=== PATIENT | female | born 1950 | race Caucasian/White ===

== ENCOUNTER 2021-10-29 14:01 | Inpatient (IN) | payer BC ==
[~2021-10-29] VITALS: Ht 154.9 cm; Wt 70.0 kg
[2021-10-29 14:53] LABS: BASOPHILS # (AUTO) 0.1 X10'3 (0-0.2); BASOPHILS % (AUTO) 0.7 % (0-1); EOSINOPHILS # (AUTO) 0.1 X10'3 (0-0.9); EOSINOPHILS % (AUTO) 1.5 % (0-6); HEMATOCRIT 33.3 % (35.0-45.0); HEMOGLOBIN 11.9 g/dl (12.0-16.0); LYMPHOCYTES # (AUTO) 1.8 X10'3 (1.1-4.8); LYMPHOCYTES % (AUTO) 21.7 % (21-51); MEAN CORPUSCULAR HEMOGLOBIN 32.8 PG (27.0-31.0); MEAN CORPUSCULAR HGB CONC 35.8 g/dL (33.0-36.5); MEAN CORPUSCULAR VOLUME 91.6 FL (78-98); MEAN PLATELET VOLUME 9.1 FL (7.4-10.4); MONOCYTES # (AUTO) 0.7 X10'3 (0-0.9); MONOCYTES % (AUTO) 8.8 % (2-12); NEUTROPHILS # (AUTO) 5.7 X10'3 (1.8-7.7); NEUTROPHILS % (AUTO) 67.3 % (42-75); PLATELET COUNT 246 X10'3 (140-440); RED BLOOD COUNT 3.64 X10'6 (4.20-5.60); RED CELL DISTRIBUTION WIDTH 13.8 % (11.5-14.5); WHITE BLOOD COUNT 8.5 X10'3 (4.5-11.0)
[2021-10-29 15:07] LABS: ALANINE AMINOTRANSFERASE 17 U/L (12-78); ALBUMIN 3.2 G/DL (3.4-5.0); ALBUMIN/GLOBULIN RATIO 0.9 (1.1-1.5); ALKALINE PHOSPHATASE 48 IU/L (46-116); ANION GAP 1 (8-16); APTT 24 SECONDS (22-32); ASPARTATE AMINO TRANSFERASE 21 U/L (10-37); BILIRUBIN,TOTAL 0.7 MG/DL (0.1-1.0); BLOOD UREA NITROGEN 22 MG/DL (7-18); BUN/CREATININE RATIO 20.8 (6.6-38.0); CHLORIDE 100 MMOL/L (99-107); CREATININE 1.06 MG/DL (0.40-0.90); GLUCOSE 136 MG/DL (70-104); SODIUM 140 MMOL/L (135-145); TOTAL CARBON DIOXIDE 38.8 MMOL/L (24-32); TOTAL PROTEIN 6.6 G/DL (6.4-8.2); eGFR 51 ML/MIN
[2021-10-29 15:24] LABS: POTASSIUM 2.1 MMOL/L (3.5-5.1)
[2021-10-29 15:25] LABS: CALCIUM 14.8 MG/DL (8.5-10.1)
[2021-10-29] MEDS ORDERED: normal saline 1000ml 1,000 ML IV ONE ×3 (15:30→16:20)
[2021-10-29] MEDS: potassium CL 10mEq/100ml bag 100 ML IV SCH ×3 (15:45→17:30)
[2021-10-29] MEDS: magnesium 2GM in 50ml NS 50 ML IV SCH ×2 (15:46→16:30)
[2021-10-29] MEDS ORDERED: LEVO75TA56 PO (16:10)
[2021-10-29] MEDS ORDERED: ASPI-1071 PO (16:10)
[2021-10-29] MEDS ORDERED: ATEN50TA90 PO (16:10)
[2021-10-29] MEDS ORDERED: HYDR-4070 PO (16:10)
[2021-10-29] MEDS ORDERED: LOSA100T57 PO (16:10)
[2021-10-29] MEDS ORDERED: HYDR12.55 PO (16:10)
[2021-10-29] MEDS ORDERED: COLC0.6T72 PO (16:10)
[2021-10-29] MEDS ORDERED: ALLO100T25 PO (16:10)
[2021-10-29] MEDS ORDERED: SIMV40TA PO (16:10)
--- NOTE | 2021-10-29 16:14 | NUR ---
Patient was brought in by friend with c/o slurred speech and weak gait. NIHSS -0. Awake, alert and orientedx4. On room air, no form of distress noted. SB hr 40s-60s, Pt denied any symptoms of ghada. K+ 2.1, electrolyte repl in progress. ivf bolus ongoing. Monitoring ongoing
[2021-10-29] MEDS ORDERED: POTASSIUM BICARB 20meq eff tab 20 MEQ TABLET.EFF PO ONE (17:10)
[2021-10-29 17:44] LABS: POTASSIUM 2.1 MMOL/L (3.5-5.1)
[2021-10-29 17:45] LABS: MAGNESIUM 0.8 MG/DL (1.5-2.4)
[2021-10-29] MEDS ORDERED: PERFLUTREN PROTEIN-A MICROSPHR (Optison) 0.22 MG/ML 3ML VIAL IV ONE (20:20)
[2021-10-29] MEDS ORDERED: acetaminophen 325mg tablet PO PRN ×2 (20:20)
[2021-10-29] MEDS ORDERED: HYDROcodone/acetaminophen 10/325mg tab PO PRN (20:20)
[2021-10-29] MEDS ORDERED: morphine 2 MG/ML inj. syringe IV PRN ×2 (20:20)
[2021-10-29] MEDS ORDERED: magnesium Cl slow-release 64mg tablet PO PRN (20:20)
[2021-10-29] MEDS ORDERED: magnesium hydroxide 30ml (MOM) UD suspension PO PRN (20:20)
[2021-10-29] MEDS ORDERED: HYDROcodone/acetaminophen 5mg/325mg tablet PO PRN (20:20)
[2021-10-29] MEDS: normal saline 1000ml 1,000 ML IV SCH (20:20)
[2021-10-29] MEDS ORDERED: bisacodyl 10mg suppository rectal RC PRN (20:20)
[2021-10-29] MEDS ORDERED: POTASSIUM BICARB 20meq eff tab 20 MEQ TABLET.EFF PO PRN ×2 (20:20)
[2021-10-29] MEDS ORDERED: ondansetron/PF 4mg/2ml inj IV PRN (20:20)
[2021-10-29] MEDS ORDERED: diphenhydrAMINE 25mg capsule PO PRN (20:20)
[2021-10-29] MEDS ORDERED: mag hydrox/Alum hydrox/simeth 30ml oral suspension PO PRN (20:20)
[2021-10-29] MEDS ORDERED: acetaminophen 650mg rectal suppository RC PRN (20:20)
[2021-10-29] MEDS ORDERED: magnesium 2GM in 50ml NS 50 ML IV PRN (20:20)
[2021-10-29 20:51] LABS: HEMOGLOBIN A1C 5.6 % (4.5-6.2)
[2021-10-29] MEDS: hydrALAZINE 25 MG tablet PO SCH (22:57)
[2021-10-30] MEDS: normal saline 1000ml 1,000 ML IV SCH ×2 (02:57→10:06)
[2021-10-30 04:23] LABS: BASOPHILS % (AUTO) 0.3 % (0-1); EOSINOPHILS # (AUTO) 0.2 X10'3 (0-0.9); EOSINOPHILS % (AUTO) 2.4 % (0-6); HEMATOCRIT 31.2 % (35.0-45.0); LYMPHOCYTES # (AUTO) 1.5 X10'3 (1.1-4.8); LYMPHOCYTES % (AUTO) 22.1 % (21-51); MEAN CORPUSCULAR HEMOGLOBIN 32.3 PG (27.0-31.0); MEAN CORPUSCULAR HGB CONC 35.2 g/dL (33.0-36.5); MEAN CORPUSCULAR VOLUME 91.7 FL (78-98); MEAN PLATELET VOLUME 9.2 FL (7.4-10.4); MONOCYTES # (AUTO) 0.6 X10'3 (0-0.9); MONOCYTES % (AUTO) 9.2 % (2-12); NEUTROPHILS # (AUTO) 4.4 X10'3 (1.8-7.7); PLATELET COUNT 210 X10'3 (140-440); RED CELL DISTRIBUTION WIDTH 13.7 % (11.5-14.5); WHITE BLOOD COUNT 6.6 X10'3 (4.5-11.0)
[2021-10-30] MEDS ORDERED: loperamide 2mg capsule PO PRN (04:45)
[2021-10-30 04:53] LABS: ALANINE AMINOTRANSFERASE 18 U/L (12-78); ALBUMIN 2.9 G/DL (3.4-5.0); ALKALINE PHOSPHATASE 43 IU/L (46-116); ANION GAP 5 (8-16); ASPARTATE AMINO TRANSFERASE 17 U/L (10-37); BILIRUBIN,TOTAL 0.6 MG/DL (0.1-1.0); BLOOD UREA NITROGEN 16 MG/DL (7-18); BUN/CREATININE RATIO 19.5 (6.6-38.0); CHLORIDE 105 MMOL/L (99-107); CHOL/HDL RATIO 2.6 (0.00-4.99); CHOLESTEROL 118 MG/DL (0-200); CREATININE 0.82 MG/DL (0.40-0.90); GLUCOSE 91 MG/DL (70-104); HDL CHOLESTEROL 46 MG/DL (35-60); LDL CHOLESTEROL 58 MG/DL (50-100); MAGNESIUM 1.5 MG/DL (1.5-2.4); PHOSPHORUS 1.5 MG/DL (2.3-4.5); SODIUM 142 MMOL/L (135-145); TOTAL CARBON DIOXIDE 32.5 MMOL/L (24-32); TOTAL PROTEIN 5.8 G/DL (6.4-8.2); TRIGLYCERIDES 87 MG/DL (20-135); eGFR 69 ML/MIN
[2021-10-30 04:56] LABS: POTASSIUM 2.2 MMOL/L (3.5-5.1)
[2021-10-30 04:57] LABS: CALCIUM 13.1 MG/DL (8.5-10.1)
[2021-10-30] MEDS: hydrALAZINE 20mg/ml inj. IV PRN ×2 (05:40→13:46)
[2021-10-30] MEDS: potassium CL 10mEq/100ml bag 100 ML IV PRN ×8 (06:37→23:28)
[2021-10-30] MEDS: K and/or MAG REPLACEMENT MC SCH ×2 (08:00→20:00)
[2021-10-30] MEDS: docusate sod 100mg capsule PO SCH ×2 (08:00→20:00)
[2021-10-30] MEDS: levoTHYROXINE 75mcg tablet PO SCH (08:47)
[2021-10-30] MEDS: losartan 50mg tablet PO SCH (08:47)
[2021-10-30] MEDS: atenolol 50mg tablet PO SCH (08:47)
[2021-10-30] MEDS: aspirin 81mg, enteric-coated 1 TAB TABLET.DR PO SCH (08:48)
[2021-10-30] MEDS: atorvastatin 20mg tablet PO SCH (08:48)
[2021-10-30] MEDS: enoxaparin 40mg/0.4ml syringe SUBCUT SCH (08:48)
[2021-10-30] MEDS: hydrALAZINE 25 MG tablet PO SCH ×2 (08:52→19:53)
--- NOTE | 2021-10-30 12:00 | NUR ---
pt to mri
[2021-10-30] MEDS ORDERED: IOHEXOL 12MG/ML oral solution 500 ML BOTTLE PO ONE (13:10)
[2021-10-30] MEDS ORDERED: POTASSIUM BICARB 20meq eff tab 20 MEQ TABLET.EFF PO PRN (14:25)
[2021-10-30] MEDS ORDERED: iohexol 300mg/ml 100ml inj. ONE (14:37)
--- NOTE | 2021-10-30 14:57 | NUR ---
PT IS VERY EMOTIONAL RIGHT NOW AND CRYING. SHE SAYS SHE NEEDS A BREAK FROM THE VS MACHINE AND IV PUMPS. SHE IS GOING TO CT NOW AND THEN WHEN SHE COMES BACK I TOLD HER WE COULD TAKE A BREAK FOR A SHORT TIME FROM THE MACHINES
--- NOTE | 2021-10-30 15:45 | NUR ---
CAN NOT GIVEN THE IV FLUIDS WITH K+ AT THIS TIME CAUSE PT IS GETTING K+ RIDERS
--- NOTE | 2021-10-30 16:05 | NUR ---
PT HAS NOT HAD ANY DIARRHEA SINCE THIS MORNING
[2021-10-30 18:40] LABS: C DIFF SPECIMEN=DIARRHEA? ACCEPTABLE; C DIFFICILE TOXINS A&B NEGATIVE (Neg)
[2021-10-30 18:47] LABS: OCCULT BLOOD STOOL NEGATIVE (Neg)
--- NOTE | 2021-10-30 19:34 | NUR ---
Patient up to the bathroom w/o problem
[2021-10-30] MEDS: Potassium Cl inj 40 MEQ in sodium chloride 0.45% 980 ML IV SCH ×2 (20:11→22:25)
[2021-10-31] MEDS: potassium CL 10mEq/100ml bag 100 ML IV PRN (00:43)
[2021-10-31] MEDS: POTASSIUM BICARB 20meq eff tab 20 MEQ TABLET.EFF PO PRN ×3 (03:17→19:36)
--- NOTE | 2021-10-31 07:35 | NUR ---
Patient has an Ivf to Right wrist, iv infiltrated on my assessment site is red and tender to touch. Pt refused that i place another iv, stated she "wants a 2nd opinion". design engineering intern - Radha assessed pt and restarted her ivf..
[2021-10-31] MEDS: Potassium Cl inj 40 MEQ in sodium chloride 0.45% 980 ML IV SCH ×3 (07:39→19:25)
[2021-10-31] MEDS: levoTHYROXINE 75mcg tablet PO SCH (07:49)
[2021-10-31] MEDS: aspirin 81mg, enteric-coated 1 TAB TABLET.DR PO SCH (07:50)
[2021-10-31] MEDS: enoxaparin 40mg/0.4ml syringe SUBCUT SCH (07:50)
[2021-10-31] MEDS: atorvastatin 20mg tablet PO SCH (07:50)
[2021-10-31] MEDS: allopurinol 100mg tablet PO SCH (07:50)
[2021-10-31] MEDS: atenolol 50mg tablet PO SCH (07:50)
[2021-10-31] MEDS: docusate sod 100mg capsule PO SCH ×2 (07:50→19:24)
[2021-10-31] MEDS: K and/or MAG REPLACEMENT MC SCH ×3 (08:00→20:00)
[2021-10-31] MEDS: hydrALAZINE 25 MG tablet PO SCH ×2 (08:00→19:22)
[2021-10-31 08:55] LABS: BASOPHILS % (AUTO) 0.3 % (0-1); EOSINOPHILS # (AUTO) 0.1 X10'3 (0-0.9); HEMATOCRIT 32.5 % (35.0-45.0); HEMOGLOBIN 11.5 g/dl (12.0-16.0); LYMPHOCYTES # (AUTO) 1.3 X10'3 (1.1-4.8); LYMPHOCYTES % (AUTO) 18.3 % (21-51); MEAN CORPUSCULAR HEMOGLOBIN 32.2 PG (27.0-31.0); MEAN CORPUSCULAR HGB CONC 35.3 g/dL (33.0-36.5); MEAN CORPUSCULAR VOLUME 91.4 FL (78-98); MEAN PLATELET VOLUME 9.5 FL (7.4-10.4); MONOCYTES # (AUTO) 0.6 X10'3 (0-0.9); MONOCYTES % (AUTO) 9.3 % (2-12); NEUTROPHILS # (AUTO) 4.9 X10'3 (1.8-7.7); NEUTROPHILS % (AUTO) 70.1 % (42-75); PLATELET COUNT 234 X10'3 (140-440); RED BLOOD COUNT 3.56 X10'6 (4.20-5.60); RED CELL DISTRIBUTION WIDTH 13.4 % (11.5-14.5)
[2021-10-31] MEDS ORDERED: spironolactone 25 MG tablet ONE (09:07)
[2021-10-31] MEDS: losartan 50mg tablet PO SCH (09:10)
[2021-10-31 09:16] LABS: ALANINE AMINOTRANSFERASE 21 U/L (12-78); ALBUMIN 3.1 G/DL (3.4-5.0); ALKALINE PHOSPHATASE 45 IU/L (46-116); ASPARTATE AMINO TRANSFERASE 21 U/L (10-37); BILIRUBIN,TOTAL 0.7 MG/DL (0.1-1.0); BLOOD UREA NITROGEN 10 MG/DL (7-18); BUN/CREATININE RATIO 12.8 (6.6-38.0); CALCIUM 10.4 MG/DL (8.5-10.1); CREATININE 0.78 MG/DL (0.40-0.90); GLUCOSE 89 MG/DL (70-104); SODIUM 142 MMOL/L (135-145); TOTAL CARBON DIOXIDE 32.7 MMOL/L (24-32); TOTAL PROTEIN 6.3 G/DL (6.4-8.2); eGFR 73 ML/MIN
[2021-10-31 09:20] LABS: ANION GAP 5 (8-16); CHLORIDE 104 MMOL/L (99-107)
[2021-10-31 09:21] LABS: PHOSPHORUS 0.7 MG/DL (2.3-4.5)
[2021-10-31 09:22] LABS: MAGNESIUM 0.8 MG/DL (1.5-2.4)
[2021-10-31] MEDS ORDERED: POTASSIUM BICARBONATE/CIT AC 10 MEQ TABLET.EFF ONE (10:09)
[2021-10-31] MEDS: potassium phosphate inj 30 MMOL in normal saline 500ml IV soln 500 ML IV SCH ×2 (11:45→22:45)
--- NOTE | 2021-10-31 12:12 | NUR ---
PT IS WISHING THAT HER GRANDDAUGHTER, HIEU YEN; BE ALLOWED TO RECEIVE INFORMATION REGARDING PT'S CURRENT ADMISSION
[2021-10-31] MEDS: magnesium 4gm in 100ml NS 100 ML IV PRN (13:50)
--- NOTE | 2021-10-31 13:59 | NUR ---
Mg repletion started post Midline placement by Picc rn
[2021-10-31] MEDS ORDERED: PEG 3350/Na sulf,bicarb,Cl/KCl oral sol 4 liter bottle PO ONE (15:50)
--- NOTE | 2021-10-31 15:55 | NUR ---
Called PCU to give report, as per learning and development assistant.. Primary nurse is with a "critical patient". No one is able to take report. ED charge Radha made aware
--- NOTE | 2021-10-31 16:34 | NUR ---
Report given to Malia Rudd rn for pt transfer to pcu.
--- NOTE | 2021-10-31 17:27 | NUR ---
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 Pt reports 2-13 pound wt loss w/ decreased intake RESOURCE ENGINEER hx increased AMS and weakness RESOURCE ENGINEER now back to baseline mentation per EMR. K 3.0 mmol/L up from initial 2.1 and Phos 0.9mg/dl up from 0.7 prior receiving electrolyte replacement per protocol. Per CT, colonic wall thickening w/ scattered diverticulosis; c.diff negative per EMR. Pt just admit to floor from ED pending physical assessment, PO documentation, and scaled wt this admit. Unable to full assess nutrition status pending further information at this time; will f/u tomorrow once more information available in EMR. Addendum: 10/31/21 at [address] Amended: Links added.
[2021-10-31 18:00] VITALS: BP 181/74
--- NOTE | 2021-10-31 18:46 | NUR ---
Patient in room U 3024. I have received report from FLOR MATA and had the opportunity to ask questions and assume patient care. Addendum: 10/31/21 at 1847 by Carmela Reyes RN Amended: Links added.
[2021-10-31 22:00] VITALS: BP 173/72
--- NOTE | 2021-10-31 22:16 | NUR ---
pt has drank almost half of her golytely and aware why we are doing it. teaching done at 1920 regarding the colonoscopy and taking the golytely.
[2021-10-31] MEDS: hydrALAZINE 20mg/ml inj. IV PRN (22:46)
--- NOTE | 2021-10-31 22:59 | NUR ---
medicated for abd discomfort with po Tylenol and iv Apresoline as bp has not gone down despite taking 2 po bp meds earlier, map 112. pt continues to drink golytely has drank 3/4 of the jug and is now shaking and given warm blanket for this.
[2021-11-01] VITALS (13 sets, daily range): BP systolic 130–179; BP diastolic 67–109
--- NOTE | 2021-11-01 00:25 | NUR ---
pt now npo stool is colored brown liquid no solids. pt drank all of golytely except last 300cc of it. pt stated if she drank any more she'd throw up.
[2021-11-01] MEDS: Potassium Cl inj 40 MEQ in sodium chloride 0.45% 980 ML IV SCH (04:16)
[2021-11-01] MEDS: potassium phosphate inj 30 MMOL in normal saline 500ml IV soln 500 ML IV SCH ×3 (05:36)
--- NOTE | 2021-11-01 06:29 | NUR ---
Problems reprioritized. Patient report given, questions answered & plan of care reviewed with FLOR NGUYEN. Addendum: 11/01/21 at 0629 by Carmela Reyes RN Amended: Links added.
--- NOTE | 2021-11-01 06:30 | NUR ---
Patient in room PCU 3024. I have received report from FLOR Casey and had the opportunity to ask questions and assume patient care.
[2021-11-01 06:46] LABS: BASOPHILS % (AUTO) 0.5 % (0-1); EOSINOPHILS # (AUTO) 0.3 X10'3 (0-0.9); EOSINOPHILS % (AUTO) 4.3 % (0-6); HEMATOCRIT 28.9 % (35.0-45.0); LYMPHOCYTES # (AUTO) 1.7 X10'3 (1.1-4.8); LYMPHOCYTES % (AUTO) 25.4 % (21-51); MEAN CORPUSCULAR HEMOGLOBIN 32.1 PG (27.0-31.0); MEAN CORPUSCULAR HGB CONC 34.6 g/dL (33.0-36.5); MEAN CORPUSCULAR VOLUME 92.9 FL (78-98); MEAN PLATELET VOLUME 9.7 FL (7.4-10.4); MONOCYTES # (AUTO) 0.5 X10'3 (0-0.9); MONOCYTES % (AUTO) 8.2 % (2-12); NEUTROPHILS # (AUTO) 4.1 X10'3 (1.8-7.7); NEUTROPHILS % (AUTO) 61.6 % (42-75); PLATELET COUNT 214 X10'3 (140-440); RED BLOOD COUNT 3.11 X10'6 (4.20-5.60); WHITE BLOOD COUNT 6.7 X10'3 (4.5-11.0)
[2021-11-01 07:12] LABS: ALANINE AMINOTRANSFERASE 18 U/L (12-78); ALBUMIN 2.8 G/DL (3.4-5.0); ALKALINE PHOSPHATASE 44 IU/L (46-116); ANION GAP 7 (8-16); ASPARTATE AMINO TRANSFERASE 23 U/L (10-37); BILIRUBIN,TOTAL 0.5 MG/DL (0.1-1.0); BLOOD UREA NITROGEN 9 MG/DL (7-18); BUN/CREATININE RATIO 10.8 (6.6-38.0); CALCIUM 8.5 MG/DL (8.5-10.1); CHLORIDE 104 MMOL/L (99-107); CREATININE 0.83 MG/DL (0.40-0.90); GLUCOSE 79 MG/DL (70-104); MAGNESIUM 1.2 MG/DL (1.5-2.4); PHOSPHORUS 5.2 MG/DL (2.3-4.5); POTASSIUM 4.5 MMOL/L (3.5-5.1); SODIUM 140 MMOL/L (135-145); TOTAL PROTEIN 5.6 G/DL (6.4-8.2); eGFR 68 ML/MIN
[2021-11-01] MEDS: aspirin 81mg, enteric-coated 1 TAB TABLET.DR PO SCH (08:00)
[2021-11-01] MEDS: docusate sod 100mg capsule PO SCH (08:00)
[2021-11-01] MEDS: K and/or MAG REPLACEMENT MC SCH ×2 (08:00)
[2021-11-01] MEDS: levoTHYROXINE 75mcg tablet PO SCH (08:16)
[2021-11-01] MEDS: allopurinol 100mg tablet PO SCH (08:16)
[2021-11-01] MEDS: losartan 50mg tablet PO SCH (08:17)
[2021-11-01] MEDS: atorvastatin 20mg tablet PO SCH (08:17)
[2021-11-01] MEDS: hydrALAZINE 25 MG tablet PO SCH (08:17)
[2021-11-01] MEDS: atenolol 50mg tablet PO SCH (08:17)
--- NOTE | 2021-11-01 09:32 | NUR ---
pt transported to GI lab via wheelchair, belongings left in room 3026M.
[2021-11-01] MEDS ORDERED: MIDAZolam 1 MG/ML 5ML VIAL ONE (09:54)
[2021-11-01] MEDS ORDERED: fentaNYL/PF 50MCG/1 ML 2ML syringe ONE (09:54)
[2021-11-01] MEDS: magnesium 4gm in 100ml NS 100 ML IV PRN (13:23)
--- NOTE | 2021-11-01 14:30 | NUR ---
F/u 11/01: Pt DX sigmoid diverticulosis s/p colonoscopy this AM per EMR. Pt seen by RD at bedside. Pt reports intentional wt loss past few months initially 166 pounds down to 144 pounds 10/29; pending scaled wt this admit. Pt reports typically does not eat much r/t wt loss attempt i.e. slim fast WB and salad WL maybe eggs or hamburger if still hungry. Pt has mild weakness, no edema, intentional wt loss hx, and no visible signs of muscle/fat wasting during RD visit; lacks minimum malnutrition criteria at this time. Pt reports no food triggers for diarrhea does take CBD gummies HS for sleep nightly though only half gummy per Rx. 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 RD provided pt w/ written/verbal diarrhea diet ed including soluble fibers/fiber list of foods handout and RD contact information. RD encouraged pt to maintain consistent meals at home in order to ensure optimal hydration/fiber intake including soluble fibers. Advanced to heart healthy/no lactose diet per MD; no lactose intolerance per EMR. Will monitor for further nutrition intervention needs this admit. Addendum: 11/01/21 at [address] Amended: Links added.
[2021-11-01] MEDS ORDERED: CIPR-202 PO ×2 (15:57)
[2021-11-01] MEDS ORDERED: METR-159 PO ×2 (15:57)
[2021-11-01] MEDS ORDERED: POTA-206 PO (15:57)
[2021-11-01] MEDS ORDERED: MAGN400C PO (15:57)
[2021-11-01] MEDS ORDERED: LACT1CAP26 PO (15:57)
--- NOTE | 2021-11-01 17:40 | NUR ---
Pt discharged to home, with all belongings, in private vehicle accompanied by friend. Discharge instructions and medications reviewed. New prescriptions e-scripted to [facility] on [facility]. Pt instructed to follow up with Dr Rizzo in 1 week, phone number provided. Pt also instructed to follow up with PCP in 1-2 weeks. Pt states understanding and willingness to comply with discharge instructions. IV DC'd, cannula intact. Pt escorted to front lobby via wheelchair by PCT.
== END 2021-11-01 17:40 | disposition home or self-care (01) | DRG 392 ==
LOC: ER 14:01 → ED HOLD 20:21 → EDBEDREQ 10-31 15:09 → PCU 3S 10-31 16:55
PROVIDERS: ADMIT Family Medicine; ATTEND Family Medicine
PROC: BW211ZZ Computerized Tomography (CT Scan) of Abdomen and Pelvis using Low Osmolar Contrast (ICD-10-PCS; 2021-10-30)
PROC: 0DBN8ZX Excision of Sigmoid Colon, Via Natural or Artificial Opening Endoscopic, Diagnostic (ICD-10-PCS; principal; 2021-11-01)
DX: K52.831 Collagenous colitis (principal); E87.3 Alkalosis; E86.0 Dehydration; E87.6 Hypokalemia; E83.52 Hypercalcemia; D64.9 Anemia, unspecified; E03.9 Hypothyroidism, unspecified; E78.5 Hyperlipidemia, unspecified; E83.39 Other disorders of phosphorus metabolism; E83.42 Hypomagnesemia; R00.1 Bradycardia, unspecified; R26.2 Difficulty in walking, not elsewhere classified; E63.9 Nutritional deficiency, unspecified; Z60.2 Problems related to living alone; K55.20 Angiodysplasia of colon without hemorrhage; T50.2X5A Adverse effect of carbonic-anhydrase inhibitors, benzothiadiazides and other diuretics, initial encounter; M1A.9XX0 Chronic gout, unspecified, without tophus (tophi); R47.81 Slurred speech; I10 Essential (primary) hypertension; K64.4 Residual hemorrhoidal skin tags; K52.9 Noninfective gastroenteritis and colitis, unspecified; K57.30 Diverticulosis of large intestine without perforation or abscess without bleeding; N28.9 Disorder of kidney and ureter, unspecified; Z79.890 Hormone replacement therapy; Z79.899 Other long term (current) drug therapy; Z80.3 Family history of malignant neoplasm of breast; Z85.828 Personal history of other malignant neoplasm of skin; Z87.891 Personal history of nicotine dependence; Z90.710 Acquired absence of both cervix and uterus; Z98.51 Tubal ligation status; Y92.89 Other specified places as the place of occurrence of the external cause; R55 Syncope and collapse
CPT/HCPCS: 36410; 36415; 45380; 70450; 70544; 70547; 70551; 71045; 74177; 76937; 80053; 80061; 82272; 82330; 83036; 83735; 83970; 84100; 84132; 84443; 85025; 85610; 85730; 87045; 87046; 87081; 87324; 87449; 88305; 88313; 89055; 93005; 93306; 93880; 97116; 97161; 97530; 99152; 99153; 99285; A4620; A6258; C1751; G0378; J0360; J1650; J2250; J3010; J3475; J3480; J3490; J7030; J7040; Q9967

== ENCOUNTER 2023-09-29 08:10 | Inpatient (IN) | payer BC ==
[2023-09-27 12:26] LABS: BASOPHILS % (AUTO) 0.6 % (0-1); EOSINOPHILS # (AUTO) 0.2 X10'3 (0-0.9); EOSINOPHILS % (AUTO) 2.8 % (0-6); LYMPHOCYTES # (AUTO) 1.9 X10'3 (1.1-4.8); MEAN CORPUSCULAR HEMOGLOBIN 33.3 PG (27.0-31.0); MEAN CORPUSCULAR VOLUME 97.9 FL (78-98); MEAN PLATELET VOLUME 8.7 FL (7.4-10.4); MONOCYTES # (AUTO) 0.5 X10'3 (0-0.9); MONOCYTES % (AUTO) 6.9 % (2-12); NEUTROPHILS # (AUTO) 4.6 X10'3 (1.8-7.7); NEUTROPHILS % (AUTO) 63.7 % (42-75); PRE OP HEMATOCRIT 38.8 % (35.0-45.0); PRE OP HEMOGLOBIN 13.2 g/dL (12.0-16.0); PRE OP PLATELET COUNT 298 X10'3 (140-440); PRE OP WHITE BLOOD COUNT 7.2 10'3 (4.8-10.8); RED BLOOD COUNT 3.96 X10'6 (4.20-5.60); RED CELL DISTRIBUTION WIDTH 13.3 % (11.5-14.5)
[2023-09-27 12:52] LABS: ALBUMIN 3.8 G/DL (3.4-5.0); ALBUMIN/GLOBULIN RATIO 1.1 (1.1-1.5); ALKALINE PHOSPHATASE 70 IU/L (46-116); BLOOD UREA NITROGEN 15 MG/DL (7-18); BUN/CREATININE RATIO 20.5 (10.0-20.0); CALCIUM 8.6 MG/DL (8.5-10.1); CHLORIDE 94 MMOL/L (99-107); CREATININE 0.73 MG/DL (0.40-0.90); PRE OP ALT 30 U/L (30-65); PRE OP ANION GAP 9 (8-16); PRE OP AST 17 U/L (10-37); PRE OP BILIRUB, TOTAL 0.5 MG/DL (0.0-1.0); PRE OP GLUCOSE 84 MG/DL (70-104); PRE OP SODIUM 132 MMOL/L (135-145); THYROID STIMULATING HORMONE 16.08 ulU/ml (0.34-4.50); TOTAL PROTEIN 7.3 G/DL (6.4-8.2); eGFR 79 ML/MIN
[~2023-09-29] VITALS: Ht 154.9 cm; Wt 72.1 kg
[2023-09-29] VITALS (26 sets, daily range): BP systolic 137–204; BP diastolic 56–88; PULSE 52–76; RESP 9–18; TEMP 97.8–97.9; O2SAT 94–100
[2023-09-29] MEDS: cefazolin 2gm/D5W 100mL 100 ML IV ONE (05:30)
[2023-09-29] MEDS: tranexamic acid inj. 1,000 MG in normal saline IV soln 100ML IV ONE (05:30)
[2023-09-29] MEDS: DOCUMENT DATE & TIME OF BETA-BLOCKER PO ONE (05:30)
[~2023-09-29 08:10] MED LIST: ALLO100T25 PO; ASPI-1071 PO; ATEN50TA90 PO; CALC600T21 PO; COLC0.6T72 PO; FIBER PO; HYDR50TA46 PO; LEVO75TA PO; LOSA1TAB39 PO; MAGN400C PO; MELA10TA2 PO; MULT-1085 PO; POTA-188 PO; POTASSIUM PO; SIMV-343 PO; TETR-58 PO; TRAM50TA2 PO; [UNRECOGNIZED DRUG - OTHER] PO
[2023-09-29] MEDS: famotidine 20mg tablet PO ONE (12:59)
[2023-09-29] MEDS: ringers solution, lacted 1,000 ML IV SCH ×2 (13:00→13:40)
[2023-09-29] MEDS: vancomycin 1,500 MG in NS 300ml IV soln IV ONE (13:01)
[2023-09-29 13:25] LABS: ISTAT CREATININE 0.8 mg/dL (0.6-1.1); ISTAT HGB 12.6 g/dl (12.0-16.0); ISTAT IONIZED CALCIUM 1.2 mmol/L (1.03-1.32); ISTAT K 3.6 mmol/L (3.5-5.1); POC BUN/CREATININE RATIO 17.5 (6.6-38.0)
[2023-09-29] MEDS: morphine 10mg/ml inj. ONE (13:31)
[2023-09-29] MEDS: ROPIVAcaine 0.5% (5mg/ml) 30ml vial ONE (13:32)
[2023-09-29] MEDS: ketorolac trometh. 30mg/ml inj. ONE (13:32)
[2023-09-29] MEDS ORDERED: meperidine/PF 25mg/ml syringe IV PRN ×2 (13:40)
[2023-09-29] MEDS ORDERED: morphine 4 MG/ML inj SYRINge IV PRN (13:40)
[2023-09-29] MEDS ORDERED: morphine 2 MG/ML inj. syringe IV PRN (13:40)
[2023-09-29] MEDS ORDERED: ondansetron/PF 4mg/2ml inj IV PRN ×2 (13:40→18:40)
[2023-09-29] MEDS ORDERED: labetalol 20mg/4ml (5mg/ml) syringe IV PRN (13:40)
[2023-09-29] MEDS ORDERED: proCHLORperazine 10 MG/2 ml inj IV PRN (13:40)
[2023-09-29] MEDS ORDERED: fentaNYL/PF 50MCG/1 ML 2ML syringe ONE (14:52)
[2023-09-29] MEDS ORDERED: MIDAZolam 1 MG/ML 5ML VIAL ONE (14:52)
[2023-09-29] MEDS ORDERED: BUPIVAcaine/PF 7.5mg/ml (0.75%) 10ml vial ONE (15:16)
[2023-09-29] MEDS ORDERED: diphenhydrAMINE 50 mg/ml inj ONE (15:16)
[2023-09-29] MEDS ORDERED: LIDOcaine 1%/PF 5ML 10 MG/ML VIAL ONE (15:16)
[2023-09-29] MEDS ORDERED: propofol inj 20 ML IV ONE ×2 (15:16→18:31)
[2023-09-29] MEDS: morphine 10mg/ml inj. IV ONE (16:08)
[2023-09-29] MEDS: vancomycin 1,000mg inj ONE (17:38)
[2023-09-29] MEDS ORDERED: acetaminophen 325mg tablet PO PRN (18:40)
[2023-09-29] MEDS ORDERED: magnesium hydroxide 30ml (MOM) UD suspension PO PRN (18:40)
[2023-09-29] MEDS ORDERED: diphenhydrAMINE 25mg capsule PO PRN ×2 (18:40)
[2023-09-29] MEDS ORDERED: naloxone 0.4 mg/ml inj IV PRN (18:40)
[2023-09-29] MEDS ORDERED: bisacodyl 10mg suppository rectal RC PRN (18:40)
[2023-09-29] MEDS ORDERED: oxyCODONE IR 5mg (immed. release) tablet PO PRN (18:40)
[2023-09-29] MEDS ORDERED: albumin (Human) 5% 250ml 250 ML IV ONE (18:45)
[2023-09-29] MEDS: enalaprilat dihydrate 2.5mg/2ml vial IV PRN (19:35)
[2023-09-29] MEDS ORDERED: acetaminophen 325mg tablet PO SCH (20:00)
[2023-09-29] MEDS: hydrALAZINE 20mg/ml inj. IV ONE ×2 (20:43→20:45)
[2023-09-29] MEDS ORDERED: colchicine 0.6mg tablet PO PRN (20:55)
[2023-09-29] MEDS ORDERED: traMADol 50MG tablet PO PRN (20:55)
[2023-09-29] MEDS: meperidine/PF 25mg/ml syringe IV PRN (21:10)
[2023-09-29] MEDS: potassium Cl 20mEq in NS 1,000 ML IV SCH (22:51)
[2023-09-29] MEDS: hydrALAZINE 25 MG tablet PO SCH (22:53)
[2023-09-29] MEDS: sennosides 8.6mg tablet PO SCH (22:54)
[2023-09-29] MEDS: gabapentin 300mg capsule PO SCH (22:54)
[2023-09-29] MEDS: atorvastatin 20mg tablet PO SCH (22:55)
[2023-09-29] MEDS: Melatonin 3mg tablet PO SCH (22:56)
[2023-09-29] MEDS: oxyCODONE IR 5mg (immed. release) tablet PO PRN (23:04)
[2023-09-29] MEDS: tranexamic acid inj. 720 MG in normal saline 100ml IV soln 92.8 ML IV ONE (23:39)
[2023-09-30] MEDS: ceFAZolin/D5W- 1GM premix 50 ML IV SCH (00:28)
[2023-09-30 00:36] VITALS: BP 129/58; PULSE 62; RESP 16; O2SAT 92
[2023-09-30 01:36] VITALS: BP 139/64; PULSE 61; RESP 14; O2SAT 97
[2023-09-30] MEDS: vancomycin/NS 1 GM ADD-VANTAGE 250 ML IV SCH (01:50)
[2023-09-30 02:00] VITALS: BP 129/65; PULSE 58; RESP 14; TEMP 97.9; O2SAT 98
[2023-09-30 06:00] VITALS: BP 161/75; PULSE 53; RESP 13; TEMP 97.7; O2SAT 97
[2023-09-30] MEDS: psyllium seed 5.8 gm packet (sugar-free) PO SCH (07:53)
[2023-09-30] MEDS: potassium chloride 10mEq ER tablet PO SCH (07:54)
[2023-09-30] MEDS: multivitamins, therapeutics tablet PO SCH (07:54)
[2023-09-30] MEDS: allopurinol 100mg tablet PO SCH (07:55)
[2023-09-30] MEDS: magnesium oxide 400mg tablet PO SCH (07:55)
[2023-09-30] MEDS: hydrALAZINE 25 MG tablet PO SCH (07:55)
[2023-09-30] MEDS: losartan 50mg tablet PO SCH (07:56)
[2023-09-30] MEDS: atenolol 50mg tablet PO SCH (07:56)
[2023-09-30] MEDS: HYDROchlorothiazide 25mg tablet PO SCH (07:56)
[2023-09-30] MEDS: levoTHYROXINE 112mcg tablet PO SCH (07:56)
[2023-09-30] MEDS: calcium carbonate 500mg tablet PO SCH (07:56)
[2023-09-30] MEDS: enoxaparin 40mg/0.4ml syringe SQ SCH (07:57)
[2023-09-30 08:00] VITALS: RESP 15; O2SAT 97
[2023-09-30] MEDS ORDERED: non-formulary drug (Magnesium Oxide (Magnesium) 1 CAP) PO SCH (08:00)
[2023-09-30] MEDS ORDERED: POTASSIUM 99 MG PO SCH (08:00)
[2023-09-30 10:00] VITALS: BP 139/70; PULSE 67; RESP 18; TEMP 98.4; O2SAT 98
[2023-09-30] MEDS ORDERED: magnesium Cl slow-release 64mg tablet PO PRN (18:30)
[2023-09-30] MEDS ORDERED: magnesium 4gm in 100ml NS 100 ML IV PRN (18:30)
[2023-09-30] MEDS ORDERED: potassium Cl 20 mEq SR tablet PO PRN ×2 (18:30)
[2023-09-30] MEDS ORDERED: acetaminophen 325mg tablet PO PRN ×2 (18:30)
[2023-09-30] MEDS ORDERED: ondansetron/PF 4mg/2ml inj IV PRN (18:30)
[2023-09-30] MEDS ORDERED: mag hydrox/Alum hydrox/simeth 30ml oral suspension PO PRN (18:30)
[2023-09-30] MEDS ORDERED: potassium Cl 40MEQ/1/2NS 520ml 520 ML IV PRN (18:30)
[2023-09-30] MEDS ORDERED: magnesium 2GM in 50ml NS 50 ML IV PRN (18:30)
[2023-09-30] MEDS: normal saline 1000ml 1,000 ML IV SCH (19:14)
[2023-09-30] MEDS: HYDROmorphone 1 mg/ml syringe IV PRN (19:14)
[2023-09-30] MEDS: K and/or MAG REPLACEMENT MC SCH (20:00)
[2023-09-30] MEDS: celeCOXIB 100mg capsule PO SCH (20:58)
[2023-10-01] MEDS: HYDROmorphone inj. 0.5 MG/0.5 ML DISP.SYRIN IV PRN (05:10)
[2023-10-01 06:47] VITALS: BP 100/80; PULSE 68; RESP 17; TEMP 97.8; O2SAT 95
[2023-10-01 07:15] VITALS: RESP 17; O2SAT 95
[2023-10-01 07:59] LABS: BASOPHILS % (AUTO) 0.3 % (0-1); EOSINOPHILS # (AUTO) 0.2 X10'3 (0-0.9); EOSINOPHILS % (AUTO) 2.9 % (0-6); HEMATOCRIT 30.2 % (35.0-45.0); HEMOGLOBIN 10.3 g/dl (12.0-16.0); LYMPHOCYTES # (AUTO) 1.7 X10'3 (1.1-4.8); LYMPHOCYTES % (AUTO) 20.9 % (21-51); MEAN CORPUSCULAR HEMOGLOBIN 33.5 PG (27.0-31.0); MEAN CORPUSCULAR VOLUME 98.8 FL (78-98); MEAN PLATELET VOLUME 8.4 FL (7.4-10.4); MONOCYTES # (AUTO) 0.7 X10'3 (0-0.9); MONOCYTES % (AUTO) 8.8 % (2-12); NEUTROPHILS # (AUTO) 5.3 X10'3 (1.8-7.7); NEUTROPHILS % (AUTO) 67.1 % (42-75); PLATELET COUNT 202 X10'3 (140-440); RED BLOOD COUNT 3.06 X10'6 (4.20-5.60); RED CELL DISTRIBUTION WIDTH 13.4 % (11.5-14.5)
[2023-10-01 08:42] LABS: ANION GAP 6 (8-16); BLOOD UREA NITROGEN 13 MG/DL (7-18); BUN/CREATININE RATIO 18.8 (10.0-20.0); CALCIUM 8.1 MG/DL (8.5-10.1); CHLORIDE 102 MMOL/L (99-107); CREATININE 0.69 MG/DL (0.40-0.90); GLUCOSE 94 MG/DL (70-104); MAGNESIUM 1.5 MG/DL (1.5-2.4); PHOSPHORUS 3.1 MG/DL (2.3-4.5); POTASSIUM 3.8 MMOL/L (3.5-5.1); SODIUM 138 MMOL/L (135-145); TOTAL CARBON DIOXIDE 30.4 MMOL/L (24-32); eCRCL 56 ML/MIN; eGFR 84 ML/MIN
[2023-10-01 15:39] VITALS: PULSE 64; RESP 14; O2SAT 98
[2023-10-01 18:00] VITALS: BP 167/64; PULSE 69; RESP 16; TEMP 98.9; O2SAT 96
[2023-10-01] MEDS ORDERED: acetaminophen 325mg tablet PO PRN (18:40)
[2023-10-01 19:00] VITALS: RESP 16; O2SAT 96
[2023-10-01 22:00] VITALS: BP 152/62; PULSE 65; RESP 18; TEMP 98.2; O2SAT 97
[2023-10-02 06:49] VITALS: BP 155/71; PULSE 71; RESP 16; TEMP 97.1; O2SAT 96
[2023-10-02 06:50] LABS: BASOPHILS # (AUTO) 0.1 X10'3 (0-0.2); BASOPHILS % (AUTO) 0.6 % (0-1); EOSINOPHILS # (AUTO) 0.3 X10'3 (0-0.9); EOSINOPHILS % (AUTO) 3.8 % (0-6); HEMATOCRIT 29.3 % (35.0-45.0); LYMPHOCYTES # (AUTO) 1.8 X10'3 (1.1-4.8); LYMPHOCYTES % (AUTO) 22.2 % (21-51); MEAN CORPUSCULAR HEMOGLOBIN 33.7 PG (27.0-31.0); MEAN CORPUSCULAR HGB CONC 34.1 g/dL (33.0-36.5); MEAN PLATELET VOLUME 9.2 FL (7.4-10.4); MONOCYTES # (AUTO) 0.7 X10'3 (0-0.9); MONOCYTES % (AUTO) 8.3 % (2-12); NEUTROPHILS # (AUTO) 5.4 X10'3 (1.8-7.7); NEUTROPHILS % (AUTO) 65.1 % (42-75); PLATELET COUNT 228 X10'3 (140-440); RED BLOOD COUNT 2.96 X10'6 (4.20-5.60); RED CELL DISTRIBUTION WIDTH 13.2 % (11.5-14.5); WHITE BLOOD COUNT 8.3 X10'3 (4.5-11.0)
[2023-10-02 07:02] LABS: ALBUMIN 2.8 G/DL (3.4-5.0); ANION GAP 5 (8-16); BLOOD UREA NITROGEN 14 MG/DL (7-18); BUN/CREATININE RATIO 23.7 (10.0-20.0); CALCIUM 8.4 MG/DL (8.5-10.1); CHLORIDE 99 MMOL/L (99-107); CREATININE 0.59 MG/DL (0.40-0.90); GLUCOSE 96 MG/DL (70-104); MAGNESIUM 1.5 MG/DL (1.5-2.4); POTASSIUM 3.7 MMOL/L (3.5-5.1); SODIUM 137 MMOL/L (135-145); TOTAL CARBON DIOXIDE 33.4 MMOL/L (24-32); eCRCL 66 ML/MIN; eGFR > 90 ML/MIN
[2023-10-02 07:20] VITALS: RESP 16; O2SAT 96
[2023-10-02 10:00] VITALS: BP 161/64; PULSE 69; RESP 16; TEMP 97; O2SAT 98
[2023-10-02 18:00] VITALS: BP 148/55; PULSE 74; RESP 20; TEMP 97.7; O2SAT 96
[2023-10-02 19:46] VITALS: RESP 20; O2SAT 96
[2023-10-02 22:00] VITALS: BP 136/59; PULSE 72; RESP 19; TEMP 97.2; O2SAT 95
[2023-10-03 05:33] LABS: BASOPHILS % (AUTO) 0.5 % (0-1); EOSINOPHILS # (AUTO) 0.3 X10'3 (0-0.9); EOSINOPHILS % (AUTO) 4.1 % (0-6); HEMATOCRIT 26.9 % (35.0-45.0); HEMOGLOBIN 9.3 g/dl (12.0-16.0); LYMPHOCYTES # (AUTO) 1.9 X10'3 (1.1-4.8); LYMPHOCYTES % (AUTO) 25.5 % (21-51); MEAN CORPUSCULAR HEMOGLOBIN 33.9 PG (27.0-31.0); MEAN CORPUSCULAR HGB CONC 34.5 g/dL (33.0-36.5); MEAN CORPUSCULAR VOLUME 98.2 FL (78-98); MEAN PLATELET VOLUME 8.2 FL (7.4-10.4); MONOCYTES # (AUTO) 0.6 X10'3 (0-0.9); MONOCYTES % (AUTO) 8.8 % (2-12); NEUTROPHILS # (AUTO) 4.5 X10'3 (1.8-7.7); NEUTROPHILS % (AUTO) 61.1 % (42-75); PLATELET COUNT 227 X10'3 (140-440); RED BLOOD COUNT 2.74 X10'6 (4.20-5.60); RED CELL DISTRIBUTION WIDTH 13.4 % (11.5-14.5); WHITE BLOOD COUNT 7.4 X10'3 (4.5-11.0)
[2023-10-03 06:00] VITALS: BP 151/74; PULSE 65; RESP 16; TEMP 97.6; O2SAT 96
[2023-10-03 06:08] LABS: ALBUMIN 2.6 G/DL (3.4-5.0); ANION GAP 4 (8-16); BLOOD UREA NITROGEN 16 MG/DL (7-18); BUN/CREATININE RATIO 25.8 (10.0-20.0); CALCIUM 8.5 MG/DL (8.5-10.1); CHLORIDE 98 MMOL/L (99-107); CREATININE 0.62 MG/DL (0.40-0.90); GLUCOSE 108 MG/DL (70-104); MAGNESIUM 1.5 MG/DL (1.5-2.4); PHOSPHORUS 5.2 MG/DL (2.3-4.5); POTASSIUM 4.4 MMOL/L (3.5-5.1); SODIUM 134 MMOL/L (135-145); TOTAL CARBON DIOXIDE 31.7 MMOL/L (24-32); eCRCL 63 ML/MIN; eGFR > 90 ML/MIN
[2023-10-03 07:00] VITALS: RESP 18
[2023-10-03 08:30] VITALS: BP 98/58; PULSE 64; RESP 16; O2SAT 96
[2023-10-03 08:35] VITALS: BP 112/62; RESP 16; O2SAT 96
[2023-10-03 10:00] VITALS: BP 107/48; PULSE 68; RESP 18; TEMP 98; O2SAT 94
[2023-10-03] MEDS ORDERED: ASPI-1 PO (13:05)
[2023-10-03 13:34] VITALS: RESP 16
== END 2023-10-03 15:25 | disposition home health service (06) | DRG 470 ==
LOC: PAS IN 12:18 → ORTHO 4S 21:34
PROVIDERS: ADMIT Orthopaedic Surgery; ATTEND Orthopaedic Surgery
PROC: 3E0T3BZ Introduction of Anesthetic Agent into Peripheral Nerves and Plexi, Percutaneous Approach (ICD-10-PCS; 2023-09-29)
PROC: 0SR90JA Replacement of Right Hip Joint with Synthetic Substitute, Uncemented, Open Approach (ICD-10-PCS; principal; 2023-09-29 14:42)
DX: M16.11 Unilateral primary osteoarthritis, right hip (principal); E87.1 Hypo-osmolality and hyponatremia; E78.5 Hyperlipidemia, unspecified; E03.9 Hypothyroidism, unspecified; I10 Essential (primary) hypertension; M10.9 Gout, unspecified; E87.6 Hypokalemia; Z96.641 Presence of right artificial hip joint; Z90.710 Acquired absence of both cervix and uterus
CPT/HCPCS: 36415; 72170; 80047; 80048; 80053; 83735; 84100; 84439; 84443; 84480; 85025; 86885; 86900; 86901; 87081; 93306; 97110; 97116; 97161; 97530; A4615; G0378; J0360; J0690; J1170; J1200; J1650; J1885; J2175; J2250; J2274; J2704; J2795; J3010; J3370; J3480; J3490; J7030; J7120; P9045

== ENCOUNTER 2024-02-22 08:50 | Outpatient (CLI) | payer BC ==
[~2024-02-22 08:50] MED LIST changes: -ASPI-1071 PO; -TETR-58 PO
== END 2024-02-22 23:59 | disposition home or self-care (01) ==
LOC: US 08:50
PROVIDERS: ATTEND Family Medicine
DX: R10.11 Right upper quadrant pain (principal); R10.9 Unspecified abdominal pain
CPT/HCPCS: 76705